=== PATIENT | male | born 1950 | race Caucasian/White ===

== ENCOUNTER 2017-05-29 06:31 | Emergency (ER) | payer OTHER ==
[2017-05-29 06:44] VITALS: BMI 26.5
[2017-05-29] MEDS ORDERED: NS 1000 ML 1,000 ML IV ONE (06:55)
[2017-05-29] MEDS ORDERED: ANTIVERT TAB 25 MG ONE (06:57)
[2017-05-29] MEDS ORDERED: NS 1000 ML 1,000 ML ONE (06:57)
[2017-05-29] MEDS ORDERED: ANTIVERT TAB 25 MG PO ONE (06:57)
--- NOTE | 2017-05-29 07:02 | DR.GENAD ---
HPI - PCP Primary Care Physician: ray lopes - Complaint/Symptoms Chief Complaint Doctors Comments: Patient admits to acute onset of severe dizziness with movement. Denies history or AUDIT SPEC pathology. Denies ENT problems. Denies a history of vomiting or diarrhea or fever. Onset of the dizziness this AM. Chief Complaint:: pt c/o dizziness since 12 midnight vomited x 1 - Source History Provided: Patient - Mode of Arrival Mode of Arrival: Wheelchair - Timing Onset of Chief Complaint: 05/29/17 PMH - PMH Past Medical History: Yes Past Medical History: GERD Past Surgical History: Yes Surgical History: Other Past Surgical History Comment: lt kidney - Family History History of Family Medical Conditions: Yes Family Medical History Comment: copd - Social History Do you use any recreational Drugs:: No Lives With: Family Lives Where: Home - infectious screening In the last 2 months have you had wt loss of >10#?: NO Have you had fever, night sweats or hemotysis?: No Have you traveled outside the country in the last 6 months?: No Isolation: Standard ROS - Review of Systems Eyes: No Symptoms Reported ENTM: No Symptoms Reported Respiratoy: No Symptoms Reported Cardiovascular: No Symptoms Reported Gastrointestinal/Abdominal: No Symptoms Reported Genitourinary: No Symptoms Reported Neurological: No Symptoms Reported Musculoskeletal: No Symptoms Reported Integumentary: No Symptoms Reported, See HPI Hematologic/Lymphatic: No Symptoms Reported Endocrine: No Symptoms Reported, Excessive Sweating Psychiatric: No Symptoms Reported All Other Systems: Reviewed and Negative PE - Vital Signs Vitals: Temperature 97.8 F Pulse Rate 58 Respiratory Rate 18 Blood Pressure [Right Arm] 175/83 Blood Pressure [Left Arm] 174/79 Blood Pressure 176/93 O2 Sat by Pulse Oximetry 99 - General Limitations: No Limitations General Appearance: Alert, Anxious - Head Head Exam: Normal Inspection, Atraumatic - Eyes Eye exam: Normal Appearance, PERRL, EOMI - ENT ENT Exam: Normal Exam, Normal Oropharynx External Ear Exam: Normal External Inspection TM/Canal Exam: Bilateral Normal Nose Exam: Normal Nose Exam, Sinus Tenderness Mouth Exam: Normal Inspection. negative: Drooling, Trismus, Lip Swelling, Tongue Elevation Throat Exam: Normal Inspection - Neck Neck Exam: Normal Inspection, Full ROM - Chest Chest Inspection: Normal Inspection, Symmetric Chest Wall Rise - Respiratory Respiratory Exam: Normal Lung Sounds Bilat Respiratory Exam: Bilateral Clear to Auscultation - Cardiovascular Cardiovascular Exam: Regular Rate, Normal Rhythm - Abdominal Exam Abdominal Exam: Normal Inspection, Normal Bowel Sounds, Soft Abdominal Tenderness: negative: RUQ, RLQ, LUQ, LLQ, Epigastrium, Suprapubic, Diffuse, Mild, Moderate, Severe, Other - Extremities Extremities Exam: Normal Inspection, Full ROM - Back Back Exam: Normal Inspection, Full ROM - Neurologic Neurological Exam: Alert, Oriented X3, CN II-XII Intact - Psychiatric Psychiatric Exam: Normal Affect, Normal Mood ROR - Labs Reviewed Result Diagrams: 05/29/17 07:05 05/29/17 07:05 Laboratory: WBC 5.8 X10^3/uL (3.6-10.0) 05/29/17 07:05 RBC 5.46 X10^6/uL (4.7-6.0) 05/29/17 07:05 Hgb 16.4 g/dL (13.5-18.0) 05/29/17 07:05 Hct 47.2 % (42.0-54.0) 05/29/17 07:05 MCV 86.4 fL (80.0-100.0) 05/29/17 07:05 MCH 29.9 pg (27.0-34.0) 05/29/17 07:05 MCHC 34.7 g/dL (33.0-35.0) 05/29/17 07:05 RDW 14.4 % (11.6-16.5) 05/29/17 07:05 Plt Count 142 X10^3/uL (150.0-450.0) L 05/29/17 07:05 MPV 7.5 fL (7.4-11.0) 05/29/17 07:05 Neut % 77.9 % (42.0-75.0) H 05/29/17 07:05 Lymph % 13.4 % (21.0-51.0) L 05/29/17 07:05 [place] % 6.8 % (0.0-13.0) 05/29/17 07:05 Eos % 1.3 % (0.9-2.9) 05/29/17 07:05 Baso % 0.6 % (0.2-1.0) 05/29/17 07:05 Neut # 4.6 x10^3/uL (2.2-4.8) 05/29/17 07:05 Lymph # 0.8 X10^3/uL (1.3-2.9) L 05/29/17 07:05 [place] # 0.4 x10^3/uL (0.3-0.8) 05/29/17 07:05 Eos # 0.1 x10^3/uL (0.0-0.2) 05/29/17 07:05 Baso # 0.0 X10^3/uL (0.0-0.1) 05/29/17 07:05 Absolute Nucleated RBC 0.1 /100WBC 05/29/17 07:05 Sodium 134 mmol/L (136-145) L 05/29/17 07:05 Corrected Sodium TNP 05/29/17 07:05 Potassium 5.1 mmol/L (3.5-5.1) 05/29/17 07:05 Chloride 100 mmol/L (98-107) 05/29/17 07:05 Carbon Dioxide 26.8 mmol/L (21-32) 05/29/17 07:05 BUN 13 mg/dL (7-18) 05/29/17 07:05 Creatinine 0.95 mg/dL (0.70-1.30) 05/29/17 07:05 Est GFR (MDRD) Af Amer > 60 (>60) 05/29/17 07:05 Est GFR (MDRD) Non-Af > 60 (>60) 05/29/17 07:05 Glucose 107 mg/dL (65-99) H 05/29/17 07:05 Calcium 8.8 mg/dL (8.5-10.1) 05/29/17 07:05 Corrected Calcium TNP 05/29/17 07:05 Total Bilirubin 0.80 mg/dL (0.2-1.0) 05/29/17 07:05 AST 54 Units/L (15-37) H 05/29/17 07:05 ALT 60 Units/L (12-78) 05/29/17 07:05 Alkaline Phosphatase 109 Units/L (46-116) 05/29/17 07:05 Creatine Kinase 93 Units/L (39-308) 05/29/17 07:05 CK-MB (CK-2) 2.9 ng/mL (0-4.0) 05/29/17 07:05 CK/CKMB % Calc 3.1 % (<4) 05/29/17 07:05 Troponin I < 0.02 ng/mL (0-1.5) 05/29/17 07:05 Total Protein 7.6 g/dL (6.4-8.2) 05/29/17 07:05 Albumin 3.6 g/dL (3.4-5.0) 05/29/17 07:05 Globulin 4.0 g/dL (2.5-4.5) 05/29/17 07:05 Albumin/Globulin Ratio 0.9 Ratio (1.1-2.1) L 05/29/17 07:05 - XRAY XRAY Interpreted by: Radiologist (CT Brain: No acute abnormality noted.) - Diagnosis Discharge Problem: Vertigo - Discharge Plan Condition: Stable - Follow ups/Referrals Follow ups/Referrals: RAY LOPES [Primary Care Provider] - 3 days - Instructions
[2017-05-29 07:16] LABS: BASOPHILS % (AUTO) 0.6 % (0.2-1.0); EOSINOPHILS # (AUTO) 0.1 x10^3/uL (0.0-0.2); EOSINOPHILS % (AUTO) 1.3 % (0.9-2.9); HEMATOCRIT 47.2 % (42.0-54.0); HEMOGLOBIN 16.4 g/dL (13.5-18.0); LYMPHOCYTES # (AUTO) 0.8 X10^3/uL (1.3-2.9); LYMPHOCYTES % (AUTO) 13.4 % (21.0-51.0); MEAN CORPUSCULAR HEMOGLOBIN 29.9 pg (27.0-34.0); MEAN CORPUSCULAR HGB CONC 34.7 g/dL (33.0-35.0); MEAN CORPUSCULAR VOLUME 86.4 fL (80.0-100.0); MEAN PLATELET VOLUME 7.5 fL (7.4-11.0); MONOCYTES # (AUTO) 0.4 x10^3/uL (0.3-0.8); MONOCYTES % (AUTO) 6.8 % (0.0-13.0); NEUTROPHILS # (AUTO) 4.6 x10^3/uL (2.2-4.8); NEUTROPHILS % (AUTO) 77.9 % (42.0-75.0); PLATELET COUNT 142 X10^3/uL (150.0-450.0); RED BLOOD COUNT 5.46 X10^6/uL (4.7-6.0); RED CELL DISTRIBUTION WIDTH 14.4 % (11.6-16.5); WHITE BLOOD COUNT 5.8 X10^3/uL (3.6-10.0)
[2017-05-29 07:29] LABS: BLOOD UREA NITROGEN 13 mg/dL (7-18); CALCIUM 8.8 mg/dL (8.5-10.1); CARBON DIOXIDE 26.8 mmol/L (21-32); CHLORIDE 100 mmol/L (98-107); CREATININE 0.95 mg/dL (0.70-1.30); SODIUM 134 mmol/L (136-145); TROPONIN I < 0.02 ng/mL (0-1.5); eGFR BLACK RACES > 60 (>60); eGFR NON BLACK RACES > 60 (>60)
[2017-05-29] MEDS ORDERED: ZOFRAN INJ 4 MG VIAL ONE (07:30)
[2017-05-29] MEDS ORDERED: ZOFRAN INJ 4 MG VIAL IVP ONE (07:31)
[2017-05-29 07:35] LABS: ALANINE AMINOTRANSFERASE 60 Units/L (12-78); ALBUMIN 3.6 g/dL (3.4-5.0); ALKALINE PHOSPHATASE 109 Units/L (46-116); ASPARTATE AMINO TRANSFERASE 54 Units/L (15-37); CKMB % 3.1 % (<4); CREATINE KINASE 93 Units/L (39-308); CREATINE KINASE MB 2.9 ng/mL (0-4.0); TOTAL PROTEIN 7.6 g/dL (6.4-8.2)
--- NOTE | 2017-05-29 08:04 | CT ---
HISTORY: Dizziness Study: CT head without contrast Comparison: None Technique: Axial noncontrast images with coronal and sagittal reformats. Dose reduction procedures we re used with mA/kv adjusted for body size. Findings: The ventricles are normal in size shape and position. There is mild age related cortical atrophy pres ent. There is no evidence for recent or remote CVA, hemorrhage, mass lesion, or extra-axial fluid col lection. No sinuses visualized were clear. The calvarium is intact. IMPRESSION: No acute intracranial abnormality Mild age-related cortical atrophy Reported By:
[2017-05-29 08:15] VITALS: BP 155/74
== END 2017-05-29 08:31 | disposition home or self-care (01) ==
LOC: ER 06:31
DX: R42 Dizziness and giddiness (principal); G31.9 Degenerative disease of nervous system, unspecified
CPT/HCPCS: 36415; 70450; 80053; 82550; 82553; 84484; 85025; 93005; 93010; 96365; 96374; 99283; A4222; J2405

== ENCOUNTER 2017-10-18 16:18 | Emergency (ER) | payer OTHER ==
--- NOTE | 2017-10-18 16:24 | DR.CP ---
HPI - Time Seen Time seen: 16:25 - HPI Comment HPI Comment: Patient states that he fell off the porch today. He reports that he has a history of dizziness and takes medication for it but has been off medication for greater than two weeks. It was reported by family members that patient has history of alcohol use. PMH - PMH Past Medical History: GERD Past Surgical History: Yes Surgical History: Other - Social History Do you use any recreational Drugs:: No ROS - Review of Systems Eyes: No Symptoms Reported ENTM: No Symptoms Reported Respiratoy: No Symptoms Reported Cardiovascular: No Symptoms Reported Gastrointestinal/Abdominal: No Symptoms Reported Neurological: No Symptoms Reported Musculoskeletal: No Symptoms Reported Integumentary: No Symptoms Reported Hematologic/Lymphatic: No Symptoms Reported Endocrine: No Symptoms Reported Psychiatric: No Symptoms Reported All Other Systems: Reviewed and Negative PE - Vitals Vitals: Pulse Rate 86 Respiratory Rate 19 Blood Pressure [Right Arm] 175/83 Blood Pressure [Left Arm] 155/74 Blood Pressure 143/82 O2 Sat by Pulse Oximetry 95 - General Limitations: Physical Limitation General Appearance: Alert, In No Apparent Distress - Head Head Exam: Normal Inspection, Atraumatic - Eyes Eye exam: Normal Appearance, PERRL, Other (right nasal bridge abrasion) - ENT ENT Exam: Normal Exam - Chest Chest Inspection: Normal Inspection - Respiratory Respiratory Exam: Normal Lung Sounds Bilat Respiratory Exam: Bilateral Clear to Auscultation - Cardiovascular Cardiovascular Exam: Regular Rate, Normal Rhythm Pulse: Normal, Radial Edema: Normal - Abdominal Exam Abdominal Exam: Normal Inspection Abdominal Tenderness: negative: RUQ, RLQ, LUQ, LLQ, Epigastrium, Suprapubic, Diffuse, Mild, Moderate, Severe, Other - Extremities Extremities Exam: Normal Inspection, Full ROM, Tenderness - Back Back Exam: Full ROM - Neurologic Neurological Exam: Alert, Oriented X3, CN II-XII Intact - Psychiatric Psychiatric Exam: Normal Affect - Skin Skin Exam: Warm, Dry, Intact Course - Reevaluation 1st: Unchanged ROR - Labs Reviewed Laboratory Results Reviewed?: Yes (alcohol 300mg/dl) Result Diagrams: 10/18/17 16:34 10/18/17 16:34 Laboratory: WBC 5.6 X10^3/uL (3.6-10.0) 10/18/17 16:34 RBC 4.85 X10^6/uL (4.7-6.0) 10/18/17 16:34 Hgb 14.9 g/dL (13.5-18.0) 10/18/17 16:34 Hct 43.7 % (42.0-54.0) 10/18/17 16:34 MCV 90.0 fL (80.0-100.0) 10/18/17 16:34 MCH 30.7 pg (27.0-34.0) 10/18/17 16:34 MCHC 34.1 g/dL (33.0-35.0) 10/18/17 16:34 RDW 16.1 % (11.6-16.5) 10/18/17 16:34 Plt Count 153 X10^3/uL (150.0-450.0) 10/18/17 16:34 MPV 7.6 fL (7.4-11.0) 10/18/17 16:34 Neut % (Auto) 34.1 % (42.0-75.0) L 10/18/17 16:34 Lymph % (Auto) 52.1 % (21.0-51.0) H 10/18/17 16:34 [place] % (Auto) 9.0 % (0.0-13.0) 10/18/17 16:34 Eos % (Auto) 2.4 % (0.9-2.9) 10/18/17 16:34 Baso % (Auto) 2.4 % (0.2-1.0) H 10/18/17 16:34 Neut # (Auto) 1.9 x10^3/uL (2.2-4.8) L 10/18/17 16:34 Lymph # (Auto) 2.9 X10^3/uL (1.3-2.9) 10/18/17 16:34 [place] # (Auto) 0.5 x10^3/uL (0.3-0.8) 10/18/17 16:34 Eos # (Auto) 0.1 x10^3/uL (0.0-0.2) 10/18/17 16:34 Baso # (Auto) 0.1 X10^3/uL (0.0-0.1) 10/18/17 16:34 Absolute Nucleated RBC 0.0 /100WBC 10/18/17 16:34 INR Target Range - 10/18/17 16:34 INR 1.19 (0.8-1.3) 10/18/17 16:34 APTT 36.0 SECONDS (22.9-36.5) 10/18/17 16:34 PTT Comment - 10/18/17 16:34 Sodium 144 mmol/L (136-145) 10/18/17 16:34 Corrected Sodium TNP 10/18/17 16:34 Potassium 3.7 mmol/L (3.5-5.1) 10/18/17 16:34 Chloride 107 mmol/L (98-107) 10/18/17 16:34 Carbon Dioxide 24.9 mmol/L (21-32) 10/18/17 16:34 BUN 7 mg/dL (7-18) 10/18/17 16:34 Creatinine 0.88 mg/dL (0.70-1.30) 10/18/17 16:34 Est GFR (MDRD) Af Amer > 60 (>60) 10/18/17 16:34 Est GFR (MDRD) Non-Af > 60 (>60) 10/18/17 16:34 Glucose 97 mg/dL (65-99) 10/18/17 16:34 Calcium 8.3 mg/dL (8.5-10.1) L 10/18/17 16:34 Corrected Calcium 8.9 mg/dL (8.5-10.1) 10/18/17 16:34 Magnesium 1.7 mg/dL (1.7-2.9) 10/18/17 16:34 Total Bilirubin 0.40 mg/dL (0.2-1.0) 10/18/17 16:34 AST 73 Units/L (15-37) H 10/18/17 16:34 ALT 54 Units/L (12-78) 10/18/17 16:34 Alkaline Phosphatase 112 Units/L (46-116) 10/18/17 16:34 Creatine Kinase 89 Units/L (39-308) 10/18/17 16:34 CK-MB (CK-2) 1.5 ng/mL (0-4.0) 10/18/17 16:34 CK/CKMB % Calc 1.7 % (<4) 10/18/17 16:34 Troponin I < 0.02 ng/mL (0-1.5) 10/18/17 16:34 Total Protein 7.3 g/dL (6.4-8.2) 10/18/17 16:34 Albumin 3.3 g/dL (3.4-5.0) L 18 16:34 Globulin 4.0 g/dL (2.5-4.5) 10/18/17 16:34 Albumin/Globulin Ratio 0.8 Ratio (1.1-2.1) L 10/18/17 16:34 Ethyl Alcohol mg/dL 300 mg/dL (0-19.9) H 10/18/17 16:34 - XRAY XRAY Interpreted by: Radiologist (Chest: The heart is normal. The pulmonary vessels are normal. The lugns are mildly hyperinflated with mild chronic interstitial changes throughout and mild linear scarring along the lung bases which is unchanged. No consolidation or effusion is seen. There are post-op changes along the distal left clavicle. Impression: Stable chronic changes with no acute abnormality seen.Brain CT: No acute intraparenchymal hemorrhage or mass can be identified. No extra axial fluid collections are seen. No alteration in the attenuation of the brain parenchyma cadn be identified to suggest acute or subacute ischemic change. There is mild global cerebral volume loss. The ventricular system is symmetric and nondilated. The extracranial structures are grossly unremarkable. Impressin: No acurte intracranial process can be identified.) - Diagnosis Discharge Problem: History of vertigo Alcohol intoxication Qualifiers: Complication of substance-induced condition: uncomplicated Qualified Code(s): F10.920 - Alcohol use, unspecified with intoxication, uncomplicated Contusion of rib on right side Qualifiers: Encounter type: initial encounter Qualified Code(s): S20.211A - Contusion of right front wall of thorax, initial encounter - Discharge Plan Condition: Stable - Follow ups/Referrals Follow ups/Referrals: SONIA DYE [Primary Care Provider] - 3 days - Instructions
[2017-10-18 16:36] VITALS: BP 143/82; BMI 28.8
[2017-10-18 16:47] LABS: BASOPHILS # (AUTO) 0.1 X10^3/uL (0.0-0.1); BASOPHILS % (AUTO) 2.4 % (0.2-1.0); EOSINOPHILS # (AUTO) 0.1 x10^3/uL (0.0-0.2); EOSINOPHILS % (AUTO) 2.4 % (0.9-2.9); HEMATOCRIT 43.7 % (42.0-54.0); HEMOGLOBIN 14.9 g/dL (13.5-18.0); LYMPHOCYTES # (AUTO) 2.9 X10^3/uL (1.3-2.9); LYMPHOCYTES % (AUTO) 52.1 % (21.0-51.0); MEAN CORPUSCULAR HEMOGLOBIN 30.7 pg (27.0-34.0); MEAN CORPUSCULAR HGB CONC 34.1 g/dL (33.0-35.0); MEAN PLATELET VOLUME 7.6 fL (7.4-11.0); MONOCYTES # (AUTO) 0.5 x10^3/uL (0.3-0.8); NEUTROPHILS # (AUTO) 1.9 x10^3/uL (2.2-4.8); NEUTROPHILS % (AUTO) 34.1 % (42.0-75.0); PLATELET COUNT 153 X10^3/uL (150.0-450.0); RED BLOOD COUNT 4.85 X10^6/uL (4.7-6.0); RED CELL DISTRIBUTION WIDTH 16.1 % (11.6-16.5); WHITE BLOOD COUNT 5.6 X10^3/uL (3.6-10.0)
[2017-10-18 17:00] LABS: BLOOD UREA NITROGEN 7 mg/dL (7-18); CALCIUM 8.3 mg/dL (8.5-10.1); CARBON DIOXIDE 24.9 mmol/L (21-32); CHLORIDE 107 mmol/L (98-107); CREATININE 0.88 mg/dL (0.70-1.30); SODIUM 144 mmol/L (136-145); TROPONIN I < 0.02 ng/mL (0-1.5); eGFR BLACK RACES > 60 (>60); eGFR NON BLACK RACES > 60 (>60)
[2017-10-18] MEDS ORDERED: NS 1000 ML 1,000 ML IV SCH (17:00)
[2017-10-18 17:06] LABS: ALANINE AMINOTRANSFERASE 54 Units/L (12-78); ALBUMIN 3.3 g/dL (3.4-5.0); ALKALINE PHOSPHATASE 112 Units/L (46-116); ASPARTATE AMINO TRANSFERASE 73 Units/L (15-37); BLOOD ALCOHOL 300 mg/dL (0-19.9); CKMB % 1.7 % (<4); COR CA(FOR HYPOALB) 8.9 mg/dL (8.5-10.1); CREATINE KINASE 89 Units/L (39-308); CREATINE KINASE MB 1.5 ng/mL (0-4.0); MAGNESIUM 1.7 mg/dL (1.7-2.9); TOTAL PROTEIN 7.3 g/dL (6.4-8.2)
[2017-10-18] MEDS ORDERED: NS 1000 ML 1,000 ML ONE (17:06)
--- NOTE | 2017-10-18 17:19 | CT ---
HISTORY: Status post fall with dizziness Study: CT brain without contrast Comparison: May 29, 2017 Technique: Multiple axial images of the brain were obtained from the skull base to the vertex withou t administration of IV contrast. AEC was utilized. Findings: No acute intraparenchymal hemorrhage or mass can be identified. No extra-axial fluid collections are seen. No alteration in the attenuation of the brain parenchyma can be identified to suggest acute o r subacute ischemic change. There is mild global cerebral volume loss. The ventricular system is sym metric and nondilated. The extracranial structures are grossly unremarkable. IMPRESSION: No acute intracranial process can be identified. Reported By:
--- NOTE | 2017-10-18 17:24 | RAD ---
Indication: Fall and right rib pain. Exam: PA and lateral chest Comparison: 10/28/2015 Findings: The heart is normal. The pulmonary vessels are normal. The lungs are mildly hyperinflated w ith mild chronic interstitial changes throughout and mild linear scarring along the lung bases which is unchanged. No consolidation or effusion is seen. There are postop changes along the distal left cl avicle. Impression: Stable chronic changes with no acute abnormality seen. Reported By:
== END 2017-10-18 18:06 | disposition home or self-care (01) ==
LOC: ER 16:22
DX: F10.920 Alcohol use, unspecified with intoxication, uncomplicated (principal); S20.211A Contusion of right front wall of thorax, initial encounter; R42 Dizziness and giddiness; Z86.69 Personal history of other diseases of the nervous system and sense organs; W19.XXXA Unspecified fall, initial encounter; Y92.9 Unspecified place or not applicable; R07.89 Other chest pain
CPT/HCPCS: 36415; 70450; 71046; 80053; 80307; 82550; 82553; 83735; 84484; 85025; 85610; 85730; 93005; 93010; 96365; 99283; A4222; G6040

== ENCOUNTER 2019-10-20 07:50 | Inpatient (IN) ==
[2019-10-20 08:07] VITALS: BMI 25.8
[2019-10-20] MEDS ORDERED: ANTIVERT TAB 25 MG PO ONE (08:47)
[2019-10-20] MEDS ORDERED: ANTIVERT TAB 25 MG ONE (08:48)
[2019-10-20 09:03] LABS: BASOPHILS % (AUTO) 0.7 % (0.2-1.0); EOSINOPHILS % (AUTO) 0.6 % (0.9-2.9); HEMATOCRIT 47.3 % (42.0-54.0); HEMOGLOBIN 16.4 g/dL (13.5-18.0); LYMPHOCYTES % (AUTO) 19.1 % (21.0-51.0); MEAN CORPUSCULAR HEMOGLOBIN 30.8 pg (27.0-34.0); MEAN CORPUSCULAR HGB CONC 34.8 g/dL (33.0-35.0); MEAN CORPUSCULAR VOLUME 88.6 fL (80.0-100.0); MONOCYTES # (AUTO) 0.6 x10^3/uL (0.3-0.8); MONOCYTES % (AUTO) 11.5 % (0.0-13.0); NEUTROPHILS # (AUTO) 3.5 x10^3/uL (2.2-4.8); NEUTROPHILS % (AUTO) 68.1 % (42.0-75.0); PLATELET COUNT 132 X10^3/uL (150.0-450.0); RED BLOOD COUNT 5.34 X10^6/uL (4.7-6.0); RED CELL DISTRIBUTION WIDTH 14.8 % (11.6-16.5); WHITE BLOOD COUNT 5.1 X10^3/uL (3.6-10.0)
[2019-10-20 09:43] LABS: ALANINE AMINOTRANSFERASE 88 Units/L (12-78); ALBUMIN 4.1 g/dL (3.4-5.0); ALKALINE PHOSPHATASE 112 Units/L (46-116); AMYLASE 58 Units/L (25-115); ASPARTATE AMINO TRANSFERASE 87 Units/L (15-37); BLOOD UREA NITROGEN 9 mg/dL (7-18); CALCIUM 9.5 mg/dL (8.5-10.1); CHLORIDE 88 mmol/L (98-107); CKMB % 2.4 % (<4); CREATINE KINASE 323 Units/L (39-308); CREATININE 1.24 mg/dL (0.70-1.30); LIPASE 233 Units/L (73-393); MAGNESIUM 1.2 mg/dL (1.7-2.9); TOTAL PROTEIN 8.1 g/dL (6.4-8.2); TROPONIN I < 0.02 ng/mL (0-1.5); eGFR NON BLACK RACES > 60 (>60)
[2019-10-20 09:45] LABS: CREATINE KINASE MB 7.6 ng/mL (0-4.0); SODIUM 124 mmol/L (136-145)
--- NOTE | 2019-10-20 09:47 | DR.DIZZY ---
HPI Time seen Time Seen by Provider: 10/20/19 08:30 PCP Primary Care Physician: TARA FERGUSON HPI Comment HPI Comment: PATIENT IS 69YR OLD MALE IN ER WITH DIZZINESS, ATAXIA AND GENERALIZED WEAKNESS WITH NAUSEA AND MORNING DIARRHEA FOR OVER ONE WEEK. SYMPTOMS GETTING WORSE. HISTORY HYPERTENSION. LACK OF APPETITE. FELL YESTERDAY FROM IMBALANCE. NO FEVER OR DYSURIA. DIZZINESS GETTING WORSE. Complaint Chief Complaint Doctor Comments: DIZZINESS, ATAXIA OVER ONE WEEK. MORNING DIARRHEA ALSO. Chief Complaint:: PT C/O BEING DIZZINESS OVER A WEEK EVERY MORNING WHEN HE GETS UP AND HAVING DIARRHEA PT STATES ( I THINK I MAY BE DEHYDRATED ) ..BR COVID-19 Coronavirus risk:travel/contact w/high risk person: No Has patient experienced Coronavirus symptoms: No Nurses Notes Reviewed Nurses Notes Review: Yes Source History Provided: Patient Mode of Arrival Mode of Arrival: Ambulatory Timing Onset of Chief Complaint: 10/13/19 Came on: Suddenly Duration Duration: Constant Duration: Days Location of Weakness Weakness Location: Generalized Context Onset: At rest History of: None Stroke Symptoms: Ataxia and Dizziness Severity Severity: Abnormal activity level Modifying factors Worsens: Change in Position, Turning Head and Other Associated signs and symptoms Associated Signs and Symptoms: Near Syncope, Vertigo, Weak and Nausea PMH PMH Past Medical History: Yes Past Medical History: GERD and Hypertension Past Surgical History: Yes Surgical History: Other Past Surgical History Comment: 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,, BR Family History History of Family Medical Conditions: Yes Family Medical History: Coronary Artery Disease Family Medical History Comment: EMPYSEMA Social History Does patient currently use any type of tobacco product: No Have you used tobacco products in the last 12 months: No Type of Tobacco Use: None Does any household member use tobacco: No Alcohol Use: Rarely Do you use any recreational Drugs:: No Lives With: Alone Lives Where: Home Travel Risk Coronavirus risk:travel/contact w/high risk person: No Has patient experienced Coronavirus symptoms: No Infectious screening In the last 2 months have you had wt loss of >10#?: NO Have you had fever, night sweats or hemotysis?: No Have you traveled outside the country in the last 6 months?: No Isolation: Standard ROS Review of Systems Constitutional: See HPI, Weakness and Fatigue; negative Fever Eyes: See HPI and Photophobia ENTM: See HPI, Nose Discharge and Nose Congestion; negative Ear Pain, Hearing Loss and Throat Pain Respiratoy: No Symptoms Reported and See HPI; negative Moist Cough, Short of Breath and Wheezing Cardiovascular: See HPI; negative Chest Pain, Edema, Palpitations and Syncope (NEAR SYNCOPE.) Gastrointestinal/Abdominal: See HPI, Diarrhea and Nausea; negative Abdominal Pain, Constipation and Vomiting Genitourinary: No Symptoms Reported and See HPI; negative Dysuria, Frequency and Hematuria Neurological: See HPI, Weakness and Dizziness Musculoskeletal: No Symptoms Reported and See HPI; negative Back Pain and Muscle Pain Integumentary: No Symptoms Reported and See HPI; negative Change in Color, Rash and Juandice Hematologic/Lymphatic: No Symptoms Reported and See HPI; negative Easy Bruising and Swollen Glands Endocrine: See HPI and Decreased Appetite; negative Increased Thirst and Increased Urine Psychiatric: No Symptoms Reported and See HPI All Other Systems: Reviewed and Negative PE Vital Signs Vitals: Temperature 98.0 F Pulse Rate 89 Respiratory Rate 32 Blood Pressure [Right Arm] 143/77 Blood Pressure [Left Arm] 154/73 Blood Pressure 146/71 O2 Sat by Pulse Oximetry 97 General Limitations: No Limitations General Appearance: Alert and In No Apparent Distress Head Head Exam: Normal Inspection and Atraumatic Eyes Eye exam: Normal Appearance and PERRL; negative Scleral Icterus and Conjunctival Injection Pupils: Regular, Round: Bilateral and Reactive: Bilateral Sclera/Conjunctival: Normal Inspection: Bilateral ENT ENT Exam: Normal Exam, Normal Oropharynx, Normal External Ear Exam and TM's Normal Bilaterally Neck Neck Exam: Normal Inspection, Full ROM and Trachea Midline; negative Tenderness and Lymphadenopathy Chest Chest Inspection: Normal Inspection and Symmetric Chest Wall Rise; negative Tenderness Respiratory Respiratory Exam: Normal Lung Sounds Bilat; negative Accessory Muscle Use, Chest Wall Tenderness and Respiratory Distress Respiratory Exam: Bilateral: Rhonchi and Lower: Rhonchi Cardiovascular Cardiovascular Exam: Regular Rate, Normal Rhythm and Normal Heart Sounds; negative Systolic Murmur and Diastolic Murmur Abdominal Exam Abdominal Exam: Normal Inspection, Normal Bowel Sounds and Soft; negative Tenderness Rectal Rectal Exam: Deferred Extremeties Extremities Exam: Normal Inspection, Full ROM and Normal Capillary Refill; negative Tenderness, Edema and Calf Tenderness Back Back Exam: Normal Inspection and Full ROM; negative Tenderness, (R) CVA Tenderness, (L) CVA Tenderness and Paraspinal Tenderness Neurologic Neurological Exam: Alert, Oriented X3 and CN II-XII Intact; negative Motor Sensory Deficit Speech: Fluid Speech Cranial Nerve Exam: EOM Function (II, III, IV, ): Normal, Facial Sensation (V): Normal, Facial Palsy (VII): Normal, Gag reflex (XI): Normal, Spinal Accessory Function (XI): Normal and Tongue Deviation: Normal Cerebellar Function: Ataxic Gait Motor Strength - LUE: 5/5 Motor Strength - RUE: 5/5 Motor Strength - LLE: 5/5 Motor Strength - RLE: 5/5 Upper Motor Neuron Exam: Babinski Sign: Normal Psychiatric Psychiatric Exam: Normal Affect and Normal Mood Skin Skin Exam: Warm, Dry, Intact and Normal Color MDM Differential Diagnosis Differential Diagnosis: Anemia, CVA, Dehydration, Dysrhythmia, Electrolyte disorder, Hypoglycemia, Labyrinthitis, Myocardial infarction and Central Vertigo COURSE Treatment Treatment: SEE ORDERS. Education/Counseling Education/Counseling: Patient Educated On: Diagnosis ROR Labs Reviewed Result Diagrams: 10/21/19 06:17 10/21/19 06:17 Laboratory: WBC 5.1 X10^3/uL (3.6-10.0) 10/20/19 08:52 RBC 5.34 X10^6/uL (4.7-6.0) 10/20/19 08:52 Hgb 16.4 g/dL (13.5-18.0) 10/20/19 08:52 Hct 47.3 % (42.0-54.0) 10/20/19 08:52 MCV 88.6 fL (80.0-100.0) 10/20/19 08:52 MCH 30.8 pg (27.0-34.0) 10/20/19 08:52 MCHC 34.8 g/dL (33.0-35.0) 10/20/19 08:52 RDW 14.8 % (11.6-16.5) 10/20/19 08:52 Plt Count 132 X10^3/uL (150.0-450.0) L 10/20/19 08:52 MPV 7.0 fL (7.4-11.0) L 10/20/19 08:52 Neut % (Auto) 68.1 % (42.0-75.0) 10/20/19 08:52 Lymph % (Auto) 19.1 % (21.0-51.0) L 10/20/19 08:52 [place] % (Auto) 11.5 % (0.0-13.0) 10/20/19 08:52 Eos % (Auto) 0.6 % (0.9-2.9) L 10/20/19 08:52 Baso % (Auto) 0.7 % (0.2-1.0) 10/20/19 08:52 Neut # (Auto) 3.5 x10^3/uL (2.2-4.8) 10/20/19 08:52 Lymph # (Auto) 1.0 X10^3/uL (1.3-2.9) L 10/20/19 08:52 [place] # (Auto) 0.6 x10^3/uL (0.3-0.8) 10/20/19 08:52 Eos # (Auto) 0.0 x10^3/uL (0.0-0.2) 10/20/19 08:52 Baso # (Auto) 0.0 X10^3/uL (0.0-0.1) 10/20/19 08:52 Absolute Nucleated RBC 0.0 /100WBC 10/20/19 08:52 PT 14.8 SECONDS (11.8-14.3) 10/20/19 08:52 INR Target Range - 10/20/19 08:52 INR 1.20 (0.8-1.3) 10/20/19 08:52 APTT 39.0 SECONDS (22.9-36.5) H 10/20/19 08:52 PTT Comment - 10/20/19 08:52 Sodium 124 mmol/L (136-145) L* 10/20/19 08:52 Corrected Sodium TNP 10/20/19 08:52 Potassium 5.5 mmol/L (3.5-5.1) H 10/20/19 08:52 Chloride 88 mmol/L (98-107) L 10/20/19 08:52 Carbon Dioxide 29.0 mmol/L (21-32) 10/20/19 08:52 BUN 9 mg/dL (7-18) 10/20/19 08:52 Creatinine 1.24 mg/dL (0.70-1.30) 10/20/19 08:52 Est GFR (MDRD) Af Amer > 60 (>60) 10/20/19 08:52 Est GFR (MDRD) Non-Af > 60 (>60) 10/20/19 08:52 Glucose 107 mg/dL (65-99) H 10/20/19 08:52 Calcium 9.5 mg/dL (8.5-10.1) 10/20/19 08:52 Corrected Calcium TNP 10/20/19 08:52 Magnesium 1.2 mg/dL (1.7-2.9) L 10/20/19 08:52 Total Bilirubin 1.30 mg/dL (0.2-1.0) H 10/20/19 08:52 AST 87 Units/L (15-37) H 10/20/19 08:52 ALT 88 Units/L (12-78) H 10/20/19 08:52 Alkaline Phosphatase 112 Units/L (46-116) 10/20/19 08:52 Creatine Kinase 323 Units/L (39-308) H 10/20/19 08:52 CK-MB (CK-2) 7.6 ng/mL (0-4.0) H* 10/20/19 08:52 CK/CKMB % Calc 2.4 % (<4) 10/20/19 08:52 Troponin I < 0.02 ng/mL (0-1.5) 10/20/19 08:52 Total Protein 8.1 g/dL (6.4-8.2) 10/20/19 08:52 Albumin 4.1 g/dL (3.4-5.0) 10/20/19 08:52 Globulin 4.0 g/dL (2.5-4.5) 10/20/19 08:52 Albumin/Globulin Ratio 1.0 Ratio (1.1-2.1) L 10/20/19 08:52 Amylase 58 Units/L (25-115) 10/20/19 08:52 Lipase 233 Units/L (73-393) 10/20/19 08:52 XRAY XRAY Interpreted by: Radiologist EKG Rate: 72 [place]: Normal Rhythm: NSR Block: None Hypertrophy: None ST: Nonsp Opioid Opioid Risk Tool Age (Gilberto box if 16-45): No History of Preadolescent Sexual Abuse: No Total: 0 Total Score Risk Category: Low Risk Copyright: Carrillo MITCHELL predicting aberrant behaviors Diagnosis Discharge Problem: Acute hyponatremia, Vertigo, Dizziness, Hypomagnesemia, Acute dehydration Diarrhea Qualifiers: Diarrhea type: unspecified type Qualified Code(s): R19.7 - Diarrhea, unspecified Instructions Instructions: Dehydration, Adult, [id number] Hyponatremia Vertigo Hypertension, [id number] Gastroesophageal Reflux Disease, Adult, [id number] Dizziness, [id number] Forms: Precautions for COVID19 Patient Portal Social Distancing
--- NOTE | 2019-10-20 09:51 | CT ---
HISTORYDIZZINESSSTUDYBRAIN W/O [id number]/2019TECHNIQUEMultiple axial images of the brain were obtained from the skull base to the vertex [without] administration of IV contrast. Dose reduction techniques including Automated Exposure Control (AEC) and adjustment of mA and kV were utilized.FINDINGSNo acute intraparenchymal hemorrhage or mass can be identified. No extra-axial fluid collections are seen. No alteration in the attenuation of the brain parenchyma can be identified to suggest acute or subacute ischemic change. The ventricular system is symmetric and nondilated. There is chronic periventricular white matter disease observed and age-appropriate generalized atrophy.IMPRESSION1. No acute intracranial process can be identified.2. Chronic periventricular white matter disease likely on the basis of small vessel ischemic change.3. Age-appropriate atrophic changes are seen.Electronically signed by: DAKOTAH MANDUJANO (Oct 20, 2019 09:50:17)
--- NOTE | 2019-10-20 10:00 | RAD ---
HISTORYDIZZINESSSTUDYSingle-view [id number]/24/2019FINDINGSThe trachea is midline. The cardiac silhouette is unremarkable . The lungs are clear without focal infiltrate or effusion. The bony thorax is unremarkable.IMPRESSIONNo acute cardiopulmonary disease.Electronically signed by: DAKOTAH MANDUJANO (Oct 20, 2019 09:59:03)
[2019-10-20] MEDS ORDERED: NS 1000 ML 1,000 ML ONE ×2 (10:15→22:06)
[2019-10-20] MEDS: NS 1000 ML 1,000 ML IV SCH ×3 (10:51→22:07)
[2019-10-20] MEDS ORDERED: MAGNESIUM SULFATE 1 GRAM/100 mL PREMIX 4 G/400 ML BAG IV ONE (11:25)
[2019-10-20] MEDS: MAGNESIUM SULFATE 1 GRAM/100 mL PREMIX 1 GM/100 ML BAG IV PRN ×3 (11:37→14:02)
[2019-10-20 16:50] LABS: CKMB % 2.3 % (<4); CREATINE KINASE 311 Units/L (39-308); TROPONIN I < 0.02 ng/mL (0-1.5)
[2019-10-20] MEDS: ZESTRIL TAB 20 MG PO SCH (17:04)
[2019-10-20] MEDS ORDERED: MOTRIN TAB 800 MG PO PRN (18:06)
[2019-10-20] MEDS ORDERED: MOTRIN TAB 800 MG PO ONE (18:07)
[2019-10-20] MEDS ORDERED: ANTIVERT TAB 25 MG PO PRN (21:21)
[2019-10-20 23:18] LABS: CREATINE KINASE 299 Units/L (39-308); TROPONIN I < 0.02 ng/mL (0-1.5)
[2019-10-20 23:20] LABS: CKMB % 2.3 % (<4)
[2019-10-21] MEDS: NS 1000 ML 1,000 ML IV SCH (04:08)
[2019-10-21 06:39] LABS: BASOPHILS % (AUTO) 0.5 % (0.2-1.0); EOSINOPHILS # (AUTO) 0.1 x10^3/uL (0.0-0.2); EOSINOPHILS % (AUTO) 1.6 % (0.9-2.9); HEMATOCRIT 41.5 % (42.0-54.0); HEMOGLOBIN 14.4 g/dL (13.5-18.0); LYMPHOCYTES # (AUTO) 0.8 X10^3/uL (1.3-2.9); LYMPHOCYTES % (AUTO) 23.3 % (21.0-51.0); MEAN CORPUSCULAR HEMOGLOBIN 30.7 pg (27.0-34.0); MEAN CORPUSCULAR HGB CONC 34.6 g/dL (33.0-35.0); MEAN CORPUSCULAR VOLUME 88.7 fL (80.0-100.0); MEAN PLATELET VOLUME 7.1 fL (7.4-11.0); MONOCYTES # (AUTO) 0.5 x10^3/uL (0.3-0.8); MONOCYTES % (AUTO) 12.8 % (0.0-13.0); NEUTROPHILS # (AUTO) 2.2 x10^3/uL (2.2-4.8); NEUTROPHILS % (AUTO) 61.8 % (42.0-75.0); PLATELET COUNT 116 X10^3/uL (150.0-450.0); RED BLOOD COUNT 4.68 X10^6/uL (4.7-6.0); WHITE BLOOD COUNT 3.5 X10^3/uL (3.6-10.0)
[2019-10-21 06:50] LABS: ALANINE AMINOTRANSFERASE 75 Units/L (12-78); ALBUMIN 3.3 g/dL (3.4-5.0); ALKALINE PHOSPHATASE 83 Units/L (46-116); ASPARTATE AMINO TRANSFERASE 76 Units/L (15-37); BLOOD UREA NITROGEN 9 mg/dL (7-18); CALCIUM 8.7 mg/dL (8.5-10.1); CARBON DIOXIDE 25.5 mmol/L (21-32); CHLORIDE 99 mmol/L (98-107); COR CA(FOR HYPOALB) 9.3 mg/dL (8.5-10.1); CREATININE 1.05 mg/dL (0.70-1.30); MAGNESIUM 2.1 mg/dL (1.7-2.9); SODIUM 133 mmol/L (136-145); TOTAL PROTEIN 6.5 g/dL (6.4-8.2); eGFR NON BLACK RACES > 60 (>60)
[2019-10-21 08:09] VITALS: BP 183/88
[2019-10-21] MEDS: ZESTRIL TAB 20 MG PO SCH (08:22)
[2019-10-21] MEDS ORDERED: CLARITIN PO SCH (09:00)
[2019-10-21] MEDS ORDERED: PROTONIX TAB 40 MG PO SCH (09:00)
--- NOTE | 2019-10-21 09:01 | DR.SSS ---
SHORT STAY SUMMARY Admission Date Date of Admission: 10/20/19 Discharge Date Discharge Date: 10/21/19 Admission Diagnoses Admission Diagnoses: Hyponatremia Altered mental status Discharge Diagnoses Discharge Diagnoses: Hyponatremia Chief Complaint Chief Complaint: Dizziness Altered mental status History of Present Illness History of Present Illness: Pt is a 69 yo m pmhx HTN admitted after having dizziness, ataxia, and generalized weakness. He was found to have hyponatremia due to dehydration, which he reported having diarrhea for the past 3-4 days and not adequately drinking fluids. Reports nausea, vomiting. Denies fevers, chills, abdominal pain. Past Medical History Past Medical History: GERD and Hypertension Past Surgical History Surgical History: Abdominal Surgery Allergies Allergies Allergy/AdvReac Type Severity Reaction Status Date / Time Penicillins Allergy Verified 10/20/19 08:03 Medications Home Medications: Penicillins Allergy (Verified 10/20/19 08:03) CONTINUE taking the following medications lisinopril 40 mg PO QDAY 10/20/19 [History] New Prescriptions meclizine 25 mg PO Q8HR PRN 10 Days #30 tab 10/21/19 [Rx] Family History Family Medical History: Coronary Artery Disease Social History Does patient currently use any type of tobacco product: No Have you used tobacco products in the last 12 months: No Type of Tobacco Use: None Does any household member use tobacco: No Alcohol Use: Rarely Review of Systems Constitutional: Weakness; denies Fever and Chills Eyes: No Symptoms Reported ENT: No Symptoms Reported Respiratory: No Symptoms Reported Cardiovascular: No Symptoms Reported Gastrointestinal: Nausea, Vomiting and Diarrhea Genitourinary: No Symptoms Reported Musculoskeletal: No Symptoms Reported Skin: No Symptoms Reported Neurological: Weakness and Confusion Physical Exam Vital Signs: Last Vital Signs Temp 98.1 F 10/21/19 08:00 Pulse 73 10/21/19 08:00 Resp 17 10/21/19 08:00 BP 183/88 10/21/19 08:00 Pulse Ox 97 10/21/19 08:00 Oriented: Normal Eyes: Normal Ear: Normal Nose: Normal Respiratory: Clear Throughout Cardiovascular: Normal Auscultation: Bowel Sounds: Normal Palpation: Normal Tenderness: Normal Skin: Normal Musculoskeletal: Normal Psychiatric: Normal Speech Pattern: Clear Labs Labs: Laboratory Last Values WBC 3.5 X10^3/uL (3.6-10.0) L 10/21/19 06:17 RBC 4.68 X10^6/uL (4.7-6.0) L 10/21/19 06:17 Hgb 14.4 g/dL (13.5-18.0) D 10/21/19 06:17 Hct 41.5 % (42.0-54.0) L 10/21/19 06:17 MCV 88.7 fL (80.0-100.0) 10/21/19 06:17 MCH 30.7 pg (27.0-34.0) 10/21/19 06:17 MCHC 34.6 g/dL (33.0-35.0) 10/21/19 06:17 RDW 15.0 % (11.6-16.5) 10/21/19 06:17 Plt Count 116 X10^3/uL (150.0-450.0) L 10/21/19 06:17 MPV 7.1 fL (7.4-11.0) L 10/21/19 06:17 Neut % (Auto) 61.8 % (42.0-75.0) 10/21/19 06:17 Lymph % (Auto) 23.3 % (21.0-51.0) 10/21/19 06:17 Pickett % (Auto) 12.8 % (0.0-13.0) 10/21/19 06:17 Eos % (Auto) 1.6 % (0.9-2.9) 10/21/19 06:17 Baso % (Auto) 0.5 % (0.2-1.0) 10/21/19 06:17 Neut # (Auto) 2.2 x10^3/uL (2.2-4.8) 10/21/19 06:17 Lymph # (Auto) 0.8 X10^3/uL (1.3-2.9) L 10/21/19 06:17 Pickett # (Auto) 0.5 x10^3/uL (0.3-0.8) 10/21/19 06:17 Eos # (Auto) 0.1 x10^3/uL (0.0-0.2) 10/21/19 06:17 Baso # (Auto) 0.0 X10^3/uL (0.0-0.1) 10/21/19 06:17 Absolute Nucleated RBC 0.1 /100WBC 10/21/19 06:17 PT 14.8 SECONDS (11.8-14.3) 10/20/19 08:52 INR Target Range - 10/20/19 08:52 INR 1.20 (0.8-1.3) 10/20/19 08:52 APTT 39.0 SECONDS (22.9-36.5) H 10/20/19 08:52 PTT Comment - 10/20/19 08:52 Sodium 133 mmol/L (136-145) L 10/21/19 06:17 Corrected Sodium TNP 10/21/19 06:17 Potassium 4.5 mmol/L (3.5-5.1) 10/21/19 06:17 Chloride 99 mmol/L (98-107) 10/21/19 06:17 Carbon Dioxide 25.5 mmol/L (21-32) 10/21/19 06:17 BUN 9 mg/dL (7-18) 10/21/19 06:17 Creatinine 1.05 mg/dL (0.70-1.30) 10/21/19 06:17 Est GFR (MDRD) Af Amer > 60 (>60) 10/21/19 06:17 Est GFR (MDRD) Non-Af > 60 (>60) 10/21/19 06:17 Glucose 107 mg/dL (65-99) H 10/21/19 06:17 Calcium 8.7 mg/dL (8.5-10.1) 10/21/19 06:17 Corrected Calcium 9.3 mg/dL (8.5-10.1) 10/21/19 06:17 Magnesium 2.1 mg/dL (1.7-2.9) 10/21/19 06:17 Total Bilirubin 1.10 mg/dL (0.2-1.0) H 10/21/19 06:17 AST 76 Units/L (15-37) H 10/21/19 06:17 ALT 75 Units/L (12-78) 10/21/19 06:17 Alkaline Phosphatase 83 Units/L (46-116) 10/21/19 06:17 Creatine Kinase 299 Units/L (39-308) 10/20/19 22:29 CK-MB (CK-2) 7.0 ng/mL (0-4.0) H* 10/20/19 22:29 CK/CKMB % Calc 2.3 % (<4) 10/20/19 22:29 Troponin I < 0.02 ng/mL (0-1.5) 10/20/19 22:29 Total Protein 6.5 g/dL (6.4-8.2) 10/21/19 06:17 Albumin 3.3 g/dL (3.4-5.0) L 10/21/19 06:17 Globulin 3.2 g/dL (2.5-4.5) 10/21/19 06:17 Albumin/Globulin Ratio 1.0 Ratio (1.1-2.1) L 10/21/19 06:17 Amylase 58 Units/L (25-115) 10/20/19 08:52 Lipase 233 Units/L (73-393) 10/20/19 08:52 Assessment/Plan (1) Acute hyponatremia: (2) Vertigo: (3) Dizziness: (4) Acute dehydration: (5) Diarrhea: (6) Hypertension: (7) Hypomagnesemia: Hospital Course Hospital Course: Pt is a 69 yo m pmhx HTN admitted after having dizziness, ataxia, and generalized weakness. He was found to have hyponatremia due to dehydration. Na 124. He received IVF and electrolytes repleted. On discharge Na 133. His confusion, ataxia, and dizziness resolved. He is AOx4. Physical exam unremarkable. Home medications reviewed. He was instructed to keep adequetly hydrated. Rx meclizine prn for dizziness. Pt is stable on discharge and instructed to follow up w/ pcp in 1 week to have BMP rechecked. Discharge Medications Discharge Medications: Home Medication List lisinopril 40 mg PO QDAY 10/20/19 [History] meclizine 25 mg PO Q8HR PRN 10 Days #30 tab 10/21/19 [Rx] Prescriptions: Ramin Conn Discharge Disposition Discharge Disposition: Home
== END 2019-10-21 10:30 | disposition home or self-care (01) | DRG 641 ==
LOC: ER 07:57 → OBS 14:46
PROVIDERS: ADMIT Family Medicine; ATTEND Family Medicine
DX: R79.1 Abnormal coagulation profile; I10 Essential (primary) hypertension; E86.0 Dehydration; K21.9 Gastro-esophageal reflux disease without esophagitis; R42 Dizziness and giddiness; R19.7 Diarrhea, unspecified; E87.1 Hypo-osmolality and hyponatremia; R53.1 Weakness; E83.42 Hypomagnesemia